=== PATIENT | female | born 1990 | race Caucasian/White ===

== ENCOUNTER 2019-09-21 21:17 | Emergency (ER) | payer OTHER ==
[~2019-09-21] VITALS: Ht 157.5 cm; Wt 59.0 kg
[2019-09-21 21:22] VITALS: Ht 157.5 cm; Wt 59.0 kg
[2019-09-22 00:04] VITALS: BP 123/75
== END 2019-09-22 00:04 | disposition home or self-care (01) ==
LOC: ED 21:17
DX: R07.89 Other chest pain (principal); Z88.6 Allergy status to analgesic agent; Z88.5 Allergy status to narcotic agent
CPT/HCPCS: J1885; Q0092